=== PATIENT | male | born 1965 | race Asian ===

== ENCOUNTER 2017-06-06 21:25 | Emergency (ER) | payer BC ==
--- NOTE | 2017-06-07 01:34 | XRay Report ---
FINAL REPORT EXAM: XR L-SPINE CLINICAL INDICATIONS: BACK PAIN FINDINGS: AP and lateral views of the lumbar spine were acquired and demonstrate no fracture of the lumbar spine. There is loss of intervertebral disc space height and endplate remodeling at L3-L4, L4-L5 and L5-S1. There is partial lumbarization of S1. IMPRESSION: NO FRACTURE IS SEEN IN THE LUMBAR SPINE DEGENERATIVE CHANGES OF LOWER LUMBAR SPINE
[2017-06-07] MEDS ORDERED: TORADOL IM ONE (05:40)
[2017-06-07] MEDS ORDERED: DECADRON IM STA (05:40)
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
[2017-06-07 08:17] VITALS: BP 142/80
== END 2017-06-07 08:20 | disposition home or self-care (01) ==
LOC: ED 21:25
DX: M54.16 Radiculopathy, lumbar region (principal); G89.29 Other chronic pain; Z88.0 Allergy status to penicillin
CPT/HCPCS: 72100; 96372; 99283; J1100; J1885